=== PATIENT | male | born 1990 | race Caucasian/White ===

== ENCOUNTER 2018-05-01 00:03 | Observation (INO) | payer OTHER ==
[~2018-05-01] VITALS: Ht 193 cm; Wt 80.0 kg
--- NOTE | 2018-05-01 00:11 | NUR ---
ALL BELONGINGS TAKEN FROM PT AT THIS TIME. ROLLER DOORS IN PLACE. SITTER IN HALLWAY. L2K ON CHART. PT PROMPTED TO PROVIDE UA. UNABLE TO AT THIS TIME.
[2018-05-01 00:21] LABS: BASOPHILS # (AUTO) 0.03 x10^3/uL (0-0.1); BASOPHILS % (AUTO) 0 % (0-1); EOSINOPHILS % (AUTO) 2 % (1-7); LYMPHOCYTES # (AUTO) 1.32 x10^3/uL (1-3.4); LYMPHOCYTES % (AUTO) 13 % (22-44); MD NO; MEAN CORPUSCULAR HEMOGLOBIN 33.2 pg (27.5-34.5); MEAN CORPUSCULAR HGB CONC 34.6 g/dL (33.2-36.2); MEAN CORPUSCULAR VOLUME 96.1 fL (81-97); MEAN PLATELET VOLUME 7.7 fL (7.4-10.4); MONOCYTES # (AUTO) 0.74 x10^3/uL (0.2-0.8); MONOCYTES % (AUTO) 7 % (2-9); NEUTROPHILS # (AUTO) 7.89 x10^3/uL (1.8-6.8); NEUTROPHILS % (AUTO) 78 % (42-75); PLATELET COUNT 267 x10^3/uL (130-400); RED BLOOD COUNT 4.91 x10^6/uL (4.38-5.82); RED CELL DISTRIBUTION WIDTH 12.6 % (9.4-14.8)
--- NOTE | 2018-05-01 00:30 | NUR ---
PT D/C FROM INTERMEDIATE FOR A DUI RECENTLY. STATES HX OF DEPRESSION AND "PUTTING A LOADED GUN IN MY MOUTH" IN THE PAST. PT IS ON A L2K INITIATED BY FOR NOT ANSWERING SI QUESTIONS AND CRYING WHEN ASKED. PT IS DENYING SI AT THIS TIME. ALL BELONGIGNS TAKEN FROM PT AND PUT IN SECURE LOCKER. ROLLER DOORS IN PLACE. SITTER IN HALLWAY.
[2018-05-01 00:34] LABS: ALANINE AMINOTRANSFERASE 69 U/L (12-78); ALBUMIN 4.2 g/dL (3.4-5.0); ANION GAP 6 mmol/L (5-15); CALCIUM 8.7 mg/dL (8.5-10.1); CHLORIDE 108 mmol/L (98-107); CREATININE 0.89 mg/dL (0.7-1.3); SALICYLATE LEVEL 2.4 mg/dL (2.8-20.0)
[2018-05-01 00:36] LABS: ALKALINE PHOSPHATASE 75 U/L (45-117); BILIRUBIN,TOTAL 0.5 mg/dL (0.2-1.0); TOTAL PROTEIN 8.1 g/dL (6.4-8.2)
[2018-05-01 00:40] LABS: ACETAMINOPHEN < 2 mcg/mL (10-30)
[2018-05-01 00:41] LABS: AMPHETAMINE SCREEN, URINE Negative (Negative); BARBITURATE SCREEN, URINE Negative (Negative); BENZODIAZEPINE SCREEN, URINE Negative (Negative); CANNABINOID SCREEN, URINE Positive (Negative); COCAINE SCREEN, URINE Negative (Negative)
[2018-05-01 00:50] LABS: METHADONE SCREEN, URINE Negative (Negative); OPIATE SCREEN, URINE Negative (Negative)
--- NOTE | 2018-05-01 03:36 | NUR ---
PT RESTING COMFORTABLY ON BED. NADN. NO IMMEDIATE NEEDS.PT RESTING COMFORTABLY ON BED. NADN. NO IMMEDIATE NEEDS. Addendum: 05/01/18 at 0336 by PEG PT RESTING COMFORTABLY ON BED. NADN. NO IMMEDIATE NEEDS. AWAITING SOC AT THIS TIME.
--- NOTE | 2018-05-01 04:04 | NUR ---
THIS RN TALKED TO SOC AND UPDATED. TELEROBOT IN ROOM.
--- NOTE | 2018-05-01 06:48 | NUR ---
referral faxed to [facility]
--- NOTE | 2018-05-01 07:16 | NUR ---
REC BS REPORT PT RESTING AND SITTER IN THE TEJEDA WATCHING THE PT
[2018-05-01] MEDS ORDERED: TEMAZEPAM 15 MG CAPSULE PO PRN (08:00)
[2018-05-01] MEDS ORDERED: ACETAMINOPHEN 325 MG TABLET PO PRN (08:00)
[2018-05-01] MEDS ORDERED: LORazepam 1MG TABLET PO PRN (08:00)
--- NOTE | 2018-05-01 08:50 | NUR ---
MEAL GIVEN PT COOPERATIVE
--- NOTE | 2018-05-01 13:02 | NUR ---
[phone] PHONE NUMBER FOR BROTHER S G FRIEND MAKING PHONE CALL AT THIS TIME
--- NOTE | 2018-05-01 18:59 | NUR ---
REPORT RECEIVED FROM FRANCES HAN.
--- NOTE | 2018-05-01 19:33 | NUR ---
pt resting in [facility], sitter monitoring from [facility], [facility]. room remains secure. pt denies si/hi at this time.
--- NOTE | 2018-05-01 19:44 | NUR ---
report given to kathia schafer. all questions answered.
[2018-05-01 20:19] VITALS: BP 140/90
[2018-05-01 21:32] VITALS: BP 140/90
[2018-05-02 08:29] VITALS: BP 122/77
[2018-05-02] MEDS: NICOTINE 14MG/24 HR PATCH.TD24 TD SCH (18:18)
[2018-05-02 19:31] VITALS: BP 119/76
[2018-05-03 07:57] VITALS: BP 111/71
[2018-05-03] MEDS: NICOTINE 14MG/24 HR PATCH.TD24 TD SCH (18:12)
[2018-05-03 20:00] VITALS: BP 132/77
[2018-05-04 07:20] VITALS: BP 125/78
[2018-05-04] MEDS: NICOTINE 14MG/24 HR PATCH.TD24 TD SCH (18:30)
[2018-05-04 20:00] VITALS: BP 128/70
[2018-05-05 07:09] VITALS: BP 122/78
== END 2018-05-05 12:15 | disposition home or self-care (01) ==
LOC: ED 00:36 → EDIP 06:18 → 2N 20:07
PROVIDERS: ADMIT Hospitalist; ATTEND Hospitalist
DX: R45.851 Suicidal ideations (principal); F10.129 Alcohol abuse with intoxication, unspecified; F12.90 Cannabis use, unspecified, uncomplicated; F17.200 Nicotine dependence, unspecified, uncomplicated; F33.1 Major depressive disorder, recurrent, moderate
CPT/HCPCS: 36415; 80053; 80307; 80329; 84443; 85025; 93005; 99284; G0378; G0480